=== PATIENT | female | born 1965 ===

== ENCOUNTER 2018-03-04 14:03 | Emergency (ER) | payer OTHER ==
[2018-03-04 14:16] VITALS: BMI 21.1
[2018-03-04] MEDS ORDERED: Bacitracin Ointment 30 GM TUBE TOP STA (14:19)
[2018-03-04 14:23] VITALS: TEMP 97
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
[2018-03-04 14:47] VITALS: BP 111/69; PULSE 82; RESP 16; O2SAT 99
== END 2018-03-04 14:45 | disposition home or self-care (01) ==
LOC: ED 14:03
DX: T22.212A Burn of second degree of left forearm, initial encounter (principal); T23.202A Burn of second degree of left hand, unspecified site, initial encounter; X12.XXXA Contact with other hot fluids, initial encounter; Y93.G3 Activity, cooking and baking; Y92.009 Unspecified place in unspecified non-institutional (private) residence as the place of occurrence of the external cause